=== PATIENT | female | born 1985 | race Two or more races ===

== ENCOUNTER 2018-10-18 16:44 | Emergency (ER) | payer BC, OTHER ==
[~2018-10-18] VITALS: Ht 149.9 cm; Wt 54.2 kg
[2018-10-18 16:51] VITALS: BP 129/71
== END 2018-10-18 18:48 | disposition home or self-care (01) ==
LOC: ED 18:42
DX: L03.011 Cellulitis of right finger (principal); M79.641 Pain in right hand
CPT/HCPCS: 10060; 99283

== ENCOUNTER 2018-10-21 12:13 | Emergency (ER) | payer BC ==
[~2018-10-21] VITALS: Ht 149.9 cm; Wt 54.0 kg
[2018-10-21 12:24] VITALS: BP 98/63
== END 2018-10-21 13:55 | disposition home or self-care (01) ==
LOC: ED 13:47
DX: L03.011 Cellulitis of right finger (principal)
CPT/HCPCS: 99283